=== PATIENT | female | born 1995 | race Caucasian/White ===

== ENCOUNTER 2022-01-30 14:47 | Inpatient (IN) | payer OTHER, SELFPAY ==
[2022-01-30] VITALS (104 sets, daily range): BP systolic 73–129; BP diastolic 18–85; PULSE 75–116; TEMP 36.3; O2SAT 97–100; BMI 29.5
--- NOTE | ~2022-01-30 | XR_ITS ---
EXAM: XR pelvis 1-2V DATE: 01/31/2022 17:01 HISTORY: Repeat image for possible FB . COMPARISON: Same date at 1:50 AM. FINDINGS: Normal mineralization. No fracture or dislocation. No lytic or blastic lesion. Joint space s are maintained. No erosion or periosteal change. Soft tissues within normal limits. A suture needle projects over the inferior left inguinal fold. IMPRESSION: A suture needle projects over the inferior left inguinal fold which may be external to th e patient, such as sitting within the inguinal fold or underneath the patient, possibly dislodged dur ing surgical sponge removal. Results reported telephonically to Nancy Shields by Dr. Scott at 5:16 PM on 01/31/2022. Reviewed, dictated and finalized at location K. IMPRESSION: A suture needle projects over the inferior left inguinal fold which may be external to the patient, such as sitting within the inguinal fold or un derneath the patient, possibly dislodged during surgical sponge removal. Results reported telephonically to Nancy Shields by Dr. Scott at 5:16 PM on 2021.
--- NOTE | ~2022-01-30 | CT_ITS ---
EXAMINATION: CT pelvis wo con DATE: 01/31/2022 19:45 INDICATION: retained suture needle TECHNIQUE: Computed tomography (CT) of the pelvis was performed without intravenous contrast. Automat ed exposure control and iterative reconstruction technique were employed. The dose-length product was 429.31 mGy-cm. COMPARISON: None. FINDINGS: GI tract: No small or large bowel dilation. Normal appendix. Mesentery/Peritoneum: No ascites, mass, or free air. Retroperitoneum: No mass. Pelvis: Expected uterine changes post vaginal delivery. Marked distention of the urinary bladder. Soft Tissues: Suture needle within the posterior/perineal soft tissues, possibly in the gluteal cleft or just within the subcutaneous tissues of the left medial buttock. Bones: No acute osseous finding. IMPRESSION: Suture needle projects either within the gluteal cleft or just within the subcutaneous tissue of the left medial buttock. Reviewed, dictated and finalized at location K. IMPRESSION: Suture needle projects either within the gluteal cleft or just within the subcu taneous tissue of the left medial buttock.
--- NOTE | ~2022-01-30 | XR_ITS ---
EXAM: XR pelvis 1-2V DATE: 01/31/2022 01:56 HISTORY: needle lost in vagina known packing spounge in vagina . COMPARISON: None available. FINDINGS: Surgical sponge material projects over the midline lower pelvis/peritoneum. Suggestion of a slightly curvilinear opacity projecting over the right lateral aspect of the pubic symphysis. Region al bones and soft tissues normal for age. IMPRESSION: Curvilinear opacity projecting over the right lateral aspect of the pubic symphysis, may represent artifact but a surgical needle could appear similar. Recommend repeat pelvic x-ray, with an additional image of an example needle for comparison. Results reported telephonically to Nancy Shields RN by Dr. Scott at 4:05 PM on 01/31/2022. Reviewed, dictated and finalized at location K. IMPRESSION: Curvilinear opacity projecting over the right lateral aspect of the pubic symphysis, may represent artifact but a surgical needle could appear sim ilar. Recommend repeat pelvic x-ray, with an additional image of an example nee dle for comparison. Results reported telephonically to Nancy Shields RN by Dr. Scott at 4:05 PM on .
--- OUTSIDE RECORDS SUMMARY | 2022-01-30 14:52 | XMS_ITS | Encounter Summary ---
:1995 Author Care Team Providers Name Role Phone Lisbet Kelly [facility] Primary Care Provider [phone] Reason for Visit NST Assessment and Plan 1. Reduced movement ? non-stress test Discussion Note: None recorded.Patient educational handouts: No information available. Plan of Care Reminders Provider Appointments None recorded. ? ? Lab None recorded. ? ? Referral None recorded. ? ? Procedures None recorded. ? ? Surgeries None recorded. ? ? Imaging Non-stress Test 01/09/2022 [place] Medications Name Start Date ? ? ? Medications Administered None recorded. Vitals None recorded. Results Lab Results None recorded. Allergies Code Code System Name Reaction Severity Onset NKDA ? ? ? Problems Name Status Onset Date Source ? 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 Procedures Date Name Performed by ? 06/28/2017 Extraction of [place] Tooth Information n ot available 12/10/2021 , Obstetric, [facility] [address] [place] [address] (Work Place) 12/18/2021 , Obstetric, [facility] [address] [place] [address] (Work [address])
--- OUTSIDE RECORDS SUMMARY | 2022-01-30 14:52 | XMS_ITS | Encounter Summary ---
:1995 Author Care Team Providers Name Role Phone Lisbet Kelly [facility] Primary Care Provider [phone] Reason for Visit OB visit OB [id number] EDC 01/26/2022 LMP 04/15/2021 Assessment and Plan Assessment Note Patient is _40__weeks . Discuss ed plan. 1. Routine care Discussion Note: None recorded.Patient educational handouts: No information available. Plan of Care Reminders Provider Appointments None recorded. ? ? Lab None recorded. ? ? Referral None recorded. ? ? Procedures None recorded. ? ? Surgeries None recorded. ? ? Imaging None recorded. ? ? Medications Name Start Date ? ? ? Medications Administered None recorded. Vitals Height Weight BMI Blood Pressure 5 ft 6 in 183 lbs 29.5 kg/m2 117/75 mm[Hg] Results Lab Results None recorded. Allergies Code Code System Name Reaction Severity Onset NKDA ? ? ? Problems Name Status Onset Date Source ? 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 Procedures Date Name Performed by ? 06/28/2017 Extraction of [place] Tooth Information n ot available 01/08/2022 US, Obstetric, Follow-up [place] [address] [place] [address] (Work Place)
--- OUTSIDE RECORDS SUMMARY | 2022-01-30 14:52 | XMS_ITS ---
:1995 Author Care Team Providers Name Role Phone [facility] Primary Care Provider [phone] Allergies Code Code System Name Reaction Severity Status Onset NKDA ? Medications Name Status Start Date Stop Date ? ? AZO Standard Completed ? 02/10/2013 Bactrim DS 800 mg-160 mg tablet Completed 02/25/2013 10/10/2013 take 1 tablet by oral route every 12 hours Estarylla 0.25 mg-35 mcg tablet Completed ? 06/11/2021 TAKE 1 TABLET BY MOUTH EVERY DAY Ortho Tri-Cyclen LO (28) 0.18 mg/0.215 mg/0.25 mg-25 mcg tab let Completed 05/22/2013 05/22/2013 take 1 tablet by oral route every day Active ? Not available valacyclovir 1 gram tablet Completed ? 06/12 Problems Name Status Onset Date Source ? 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 Procedures Date Name Performed by ? 06/28/2017 Extraction of [place] Tooth Information n ot available 06/12/2021 US, Obstetric, Transvaginal [place]
--- OUTSIDE RECORDS SUMMARY | 2022-01-30 14:52 | XMS_ITS | Encounter Summary ---
:1995 Author Care Team Providers Name Role Phone Lisbet Kelly [facility] Primary Care Provider [phone] Reason for Visit OB visit OB [id number] EDC 01/26/2022 LMP 04/15/2021 Assessment and Plan Assessment Note Patient is _37__weeks . Discuss ed plan. 1. Routine care [...] BMI Blood Pressure 5 ft 6 in 179 lbs 28.9 kg/m2 123/65 mm[Hg] Results Lab Results None recorded. Allergies Code Code System Name Reaction Severity Onset NKDA ? ? ? Problems Name Status Onset Date Source ? 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 Procedures Date Name Performed by ? 06/28/2017 Extraction of [place] Tooth Information n ot available 12/10/2021 US, Obstetric, Limited [place] [address] [place] [address] (Work Place)
--- OUTSIDE RECORDS SUMMARY | 2022-01-30 14:52 | XMS_ITS | Encounter Summary ---
:1995 Author Care Team Providers Name Role Phone Lisbet Kelly [facility] Primary Care Provider [phone] Reason for Visit OB visit OB [id number] EDC 01/26/2022 LMP 04/15/2021 Assessment and Plan 1. Routine care Discussion Note: None recorded.Patient [...] BMI Blood Pressure 5 ft 6 in 182 lbs 29.4 kg/m2 118/78 mm[Hg] Results Lab Results None recorded. Allergies Code Code System Name Reaction Severity Onset NKDA ? ? ? Problems Name Status Onset Date Source ? 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 Procedures Date Name Performed by ? 06/28/2017 Extraction of [place] Tooth Information n ot available 01/08/2022 US, Obstetric, Follow-up [place] [address] [place] [address] (Work Place) 01/09/2022 Non-stress Test [place] [address]
--- OUTSIDE RECORDS SUMMARY | 2022-01-30 14:52 | XMS_ITS | Encounter Summary ---
:1995 Author Care Team Providers Name Role Phone Lisbet Kelly [facility] Primary Care Provider [phone] Reason for Visit None recorded. Assessment and Plan 1. Oligohydramnios ? US, obstetric, limited Discussion Note: None recorded.Patient educational handouts: No information available. Plan of Care Reminders Provider Appointments None recorded. ? ? Lab None recorded. ? ? Referral None recorded. ? ? Procedures None recorded. ? ? Surgeries None recorded. ? ? Imaging US, Obstetric, Limited 12/22/2021 [facility] Medications Name Start Date ? ? ? Medications Administered None recorded. Vitals None recorded. Results Lab Results None recorded. Allergies Code Code System Name Reaction Severity Onset NKDA ? ? ? Problems Name Status Onset Date Source ? 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 Procedures Date Name Performed by ? 06/28/2017 Extraction of [place] Tooth Information n ot available 12/02/2021 US, Obstetric, Follow-up [place] [address] [place] [address] (Work Place) 12/10/2021 US, Obstetric, Limited [place] [address] [place] [address]
--- OUTSIDE RECORDS SUMMARY | 2022-01-30 14:52 | XMS_ITS | Encounter Summary ---
:1995 Author Care Team Providers Name Role Phone Lisbet Kelly [facility] Primary Care Provider [phone] Reason for Visit OB visit OB [id number] edc 01/26/2022 lmp 04/15/2021 Assessment and Plan Assessment Note Patient is __33_weeks . Discuss ed plan. 1. Routine care [...] BMI Blood Pressure 5 ft 6 in 164 lbs 26.5 kg/m2 108/68 mm[Hg] Results Lab Results None recorded. Allergies Code Code System Name Reaction Severity Onset NKDA ? ? ? Problems Name Status Onset Date Source ? 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 Procedures Date Name Performed by ? 06/28/2017 Extraction of [place] Tooth Information n ot available 12/02/2021 US, Obstetric, Follow-up [place] [address] [place] [address] (Work [address])
--- OUTSIDE RECORDS SUMMARY | 2022-01-30 14:52 | XMS_ITS | Encounter Summary ---
:1995 Author Care Team Providers Name Role Phone Lisbet Kelly [facility] Primary Care Provider [phone] Reason for Visit None recorded. Assessment and Plan 1. Oligohydramnios ? US, obstetric, biophysical profile + non-stress test Discussion Note: None recorded.Patient educational handouts: No information available. Plan of Care Reminders Provider Appointments None recorded. ? ? Lab None recorded. ? ? Referral None recorded. ? ? Procedures None recorded. ? ? Surgeries None recorded. ? ? Imaging US, Obstetric, Biophysical Profile + [place] Non-stress Test Medications Name Start Date ? ? ? Medications Administered None recorded. Vitals None recorded. Results Lab Results None recorded. Allergies Code Code System Name Reaction Severity Onset NKDA ? ? ? Problems Name Status Onset Date Source ? 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 Procedures Date Name Performed by ? 06/28/2017 Extraction of [place] Tooth Information n ot available 01/08/2022 US, Obstetric, Follow-up [place] [address] [place] [address] (Work [address]) 01/09/2022 Non-stress Test [place] [address]
--- OUTSIDE RECORDS SUMMARY | 2022-01-30 14:52 | XMS_ITS | Encounter Summary ---
:1995 Author Care Team Providers Name Role Phone Lisbet Kelly [facility] Primary Care Provider [phone] Reason for Visit None recorded. Assessment and Plan 1. Uterine size for dates discrepancy ? US, obstetric, follow-up Discussion Note: None recorded.Patient educational handouts: No information available. Plan of Care Reminders Provider Appointments None recorded. ? ? Lab None recorded. ? ? Referral None recorded. ? ? Procedures None recorded. ? ? Surgeries None recorded. ? ? Imaging US, Obstetric, Follow-up 01/08/2022 [facility] Medications Name Start Date ? ? ? Medications Administered None recorded. Vitals None recorded. Results Lab Results None recorded. Allergies Code Code System Name Reaction Severity Onset NKDA ? ? ? Problems Name Status Onset Date Source ? 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 Procedures Date Name Performed by ? 06/28/2017 Extraction of [place] Tooth Information n ot available 12/10/2021 US, Obstetric, [facility] [address] [place] [address] (Work [address]) 12/18/2021 [facility], [facility]st[facility], [facility] [address] [place] [address]
--- OUTSIDE RECORDS SUMMARY | 2022-01-30 14:52 | XMS_ITS | Encounter Summary ---
:1995 Author Care Team Providers Name Role Phone Lisbet Kelly [facility] Primary Care Provider [phone] Reason for Visit OB visit OB [id number] EDC 01/26/2022 LMP 04/15/2021 Assessment and Plan Assessment Note Patient is __35_weeks . Discuss ed plan. 1. Routine care [...] BMI Blood Pressure 5 ft 6 in 171 lbs 27.6 kg/m2 109/71 mm[Hg] Results Lab Results None recorded. Allergies Code Code System Name Reaction Severity Onset NKDA ? ? ? Problems Name Status Onset Date Source ? 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 Procedures Date Name Performed by ? 06/28/2017 Extraction of [place] Tooth Information n ot available 12/02/2021 US, Obstetric, Follow-up [place] [address] [place] [address] (Work [address])
--- OUTSIDE RECORDS SUMMARY | 2022-01-30 14:52 | XMS_ITS | Encounter Summary ---
:1995 Author Care Team Providers Name Role Phone Lisbet Kelly [facility] Primary Care Provider [phone] Reason for Visit None recorded. Assessment and Plan 1. Post-term ? non-stress test Discussion Note: None recorded.Patient educational handouts: No information available. Plan of Care Reminders Provider Appointments None recorded. ? ? Lab None recorded. ? ? Referral None recorded. ? ? Procedures None recorded. ? ? Surgeries None recorded. ? ? Imaging Non-stress Test 01/30/2022 [place] Medications Name Start Date ? ? ? Medications Administered None recorded. Vitals None recorded. Results Lab Results None recorded. Allergies Code Code System Name Reaction Severity Onset NKDA ? ? ? Problems Name Status Onset Date Source ? 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 Procedures Date Name Performed by ? 06/28/2017 Extraction of [place] Tooth Information n ot available 01/08/2022 US, Obstetric, Follow-up [place] [address] [place] [address] (Work [address]) 01/09/2022 Non-stress Test [place] [address] [place] [address] (Work [address]
--- OUTSIDE RECORDS SUMMARY | 2022-01-30 14:52 | XMS_ITS | Encounter Summary ---
:1995 Author Care Team Providers Name Role Phone Lisbet Kelly [facility] Primary Care Provider [phone] Reason for Visit None recorded. Assessment and Plan 1. Oligohydramnios ? US, obstetric, limited Discussion Note: None recorded.Patient educational handouts: No information available. Plan of Care Reminders Provider Appointments None recorded. ? ? Lab None recorded. ? ? Referral None recorded. ? ? Procedures None recorded. ? ? Surgeries None recorded. ? ? Imaging US, Obstetric, Limited 12/18/2021 [facility] Medications Name Start Date ? [...] Name Performed by ? 06/28/2017 Extraction of [place] Tooth Information n ot available 12/02/2021 US, Obstetric, Follow-up [place] [address] [place] [address] (Work [address]) 12/10/2021 US, Obstetric, Limited [place] [address] [place] [address]
--- OUTSIDE RECORDS SUMMARY | 2022-01-30 14:52 | XMS_ITS | Encounter Summary ---
:1995 Author Care Team Providers Name Role Phone Lisbet Kelly [facility] Primary Care Provider [phone] Reason for Visit OB visit ob [id number] EDC 01/26/2022 LMP 04/15/2021 Assessment and Plan Assessment Note Patient is _36__weeks . Discuss ed plan. 1. Routine care [...] BMI Blood Pressure 5 ft 6 in 172 lbs 27.8 kg/m2 108/71 mm[Hg] Results Lab Results None recorded. Allergies Code Code System Name Reaction Severity Onset NKDA ? ? ? Problems Name Status Onset Date Source ? 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 Procedures Date Name Performed by ? 06/28/2017 Extraction of [place] Tooth Information n ot available 12/02/2021 US, Obstetric, Follow-up [place] [address] [place] [address] (Work [address])
--- OUTSIDE RECORDS SUMMARY | 2022-01-30 14:52 | XMS_ITS | Encounter Summary ---
:1995 Author Care Team Providers Name Role Phone Lisbet Kelly [facility] Primary Care Provider [phone] Reason for Visit OB visit OB [id number] EDC 01/26/2022 LMP 04/15/2021 Assessment and Plan Assessment Note Patient is __38_weeks . Discuss ed plan. 1. Routine care [...] BMI Blood Pressure 5 ft 6 in 181 lbs 29.2 kg/m2 106/70 mm[Hg] Results Lab Results None recorded. Allergies Code Code System Name Reaction Severity Onset NKDA ? ? ? Problems Name Status Onset Date Source ? 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 Procedures Date Name Performed by ? 06/28/2017 Extraction of [place] Tooth Information n ot available 12/18/2021 US, Obstetric, Limited [place] [address] [place] [address] (Work [address])
--- OUTSIDE RECORDS SUMMARY | 2022-01-30 14:53 | XMS_ITS | Encounter Summary ---
:1995 Author Care Team Providers Name Role Phone Lisbet Kelly [facility] Primary Care Provider [phone] Reason for Visit OB visit OB [id number] EDC 01/26/2022 LMP 04/15/2021 Assessment and Plan Assessment Note Patient is _28__weeks . Discuss ed plan. 1. Routine care [...] BMI Blood Pressure 5 ft 6 in 154 lbs 24.9 kg/m2 108/72 mm[Hg] Results Lab Results None recorded. Allergies Code Code System Name Reaction Severity Onset NKDA ? ? ? Problems Name Status Onset Date Source ? 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 Procedures Date Name Performed by ? 06/28/2017 Extraction of [place] Tooth Information n ot available Vaccine List None recorded. Social History Tobacco Smoking Status Never Smoker Do you have difficulty walking or climbing stairs? N What type of diet are you following? REGULAR What is the highest g
--- OUTSIDE RECORDS SUMMARY | 2022-01-30 14:53 | XMS_ITS | Encounter Summary ---
:1995 Author Care Team Providers Name Role Phone Lisbet Kelly [facility] Primary Care Provider [phone] Reason for Visit OB visit OB [id number] EDC 01/26/2022 LMP 04/15/2021 Assessment and Plan Assessment Note Patient is __32_weeks . Discuss ed plan. 1. Routine care [...] BMI Blood Pressure 5 ft 6 in 161 lbs 26 kg/m2 115/61 mm[Hg] Results Lab Results None recorded. Allergies Code Code System Name Reaction Severity Onset NKDA ? ? ? Problems Name Status Onset Date Source ? 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 Procedures Date Name Performed by ? 06/28/2017 Extraction of [place] Tooth Information n ot available 12/02/2021 US, Obstetric, Follow-up [place] [address] [place] [address] (Work [address])
--- OUTSIDE RECORDS SUMMARY | 2022-01-30 14:53 | XMS_ITS | Encounter Summary ---
:1995 Author Care Team Providers Name Role Phone Lisbet Kelly [facility] Primary Care Provider [phone] Reason for Visit None recorded. Assessment and Plan 1. Uterine size for dates discrepancy ? US, obstetric, follow-up Discussion Note: None recorded.Patient educational handouts: No information available. Plan of Care Reminders Provider Appointments None recorded. ? ? Lab None recorded. ? ? Referral None recorded. ? ? Procedures None recorded. ? ? Surgeries None recorded. ? ? Imaging US, Obstetric, Follow-up 12/02/2021 [facility] Medications Name Start Date ? [...] Name Performed by ? 06/28/2017 Extraction of [place] Tooth Information n ot available 12/02/2021 US, Obstetric, Follow-up [place] [address] [place] [address] (Work [address]) Vaccine List None recorded. Social History Tobacco Smoking Status Never Smoker Do you have difficulty walking or climbing stairs? N What type of diet are you following? REGULAR
--- OUTSIDE RECORDS SUMMARY | 2022-01-30 14:53 | XMS_ITS | Encounter Summary ---
:1995 Author Care Team Providers Name Role Phone Lisbet Kelly [facility] Primary Care Provider [phone] Reason for Visit None recorded. Assessment and Plan 1. Oligohydramnios ? US, obstetric, limited Discussion Note: None recorded.Patient educational handouts: No information available. Plan of Care Reminders Provider Appointments None recorded. ? ? Lab None recorded. ? ? Referral None recorded. ? ? Procedures None recorded. ? ? Surgeries None recorded. ? ? Imaging US, Obstetric, Limited 12/10/2021 [facility] Medications Name Start Date ? [...] Name Performed by ? 06/28/2017 Extraction of [place] Tooth Information n ot available 12/02/2021 US, Obstetric, Follow-up [place] [address] [place] [address] (Work [address]) 12/10/2021 US, Obstetric, Limited [place] [address] [place] [address]
--- OUTSIDE RECORDS SUMMARY | 2022-01-30 14:53 | XMS_ITS | Encounter Summary ---
:1995 Author Care Team Providers Name Role Phone Lisbet Kelly [facility] Primary Care Provider [phone] Reason for Visit OB visit OB [id number] EDC 01/26/2022 LMP 04/15/2021 Assessment and Plan Assessment Note Patient is _30__weeks . Discuss ed plan. 1. Routine care [...] BMI Blood Pressure 5 ft 6 in 157 lbs 25.3 kg/m2 109/68 mm[Hg] Results Lab Results None recorded. Allergies Code Code System Name Reaction Severity Onset NKDA ? ? ? Problems Name Status Onset Date Source ? 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 Procedures Date Name Performed by ? 06/28/2017 Extraction of [place] Tooth Information n ot available Vaccine List None recorded. Social History Tobacco Smoking Status Never Smoker Do you have difficulty walking or climbing stairs? N What type of diet are you following? REGULAR What is the highest g
--- NOTE | 2022-01-30 15:53 | LDADM ---
This patient, Nuris Trevizo, was admitted to Labor/Delivery/Recovery 104 on 01/30/22 at 14:47. Plans for labor, pain management and were discussed with patient. Patient/family oriented to hospital policies and general routines including ID bracelet, bed and alarms, visiting hours, pain management, procedures, bathroom and other care routines, personal items, smoking policy, room service/diet and guest tray routines, infant security routines, and visiting hours. Patient/Family are encouraged to report perceived risks to care and to ask questions if they do not understand what they are told or what they should do. See OBIX for further documentation.
--- NOTE | 2022-01-30 16:05 | WPDOBADMIT ---
Obstetrics - Admit Note Admission Note: record reviewed. No pertinent additions to the history and/or any subsequent changes in the physical findings that are not consistent with the expected course of the were found. pt admitted for IOL for oligohydramnios, GBS negative, attempted AROM, bloody show, anticipate vaginal delivery Additions to the history and/or subsequent changes in the physical findings follow. None.
[2022-01-30 16:18] LABS: Basophils Absolute Auto 0.1 K/mm3 (0.0-0.1); Basophils Percent Auto 0.4 % (0.2-1.2); Eosinophils Absolute Auto 0.1 K/mm3 (0-0.3); Eosinophils Percent Auto 0.8 % (0-4.4); Hematocrit 36.3 % (37.0-47.0); Hemoglobin 11.5 g/dL (12.0-15.0); Immature Granulocyte Absolute 0.16 K/mm3 (0.00-0.031); Immature Granulocyte Percent A 1.4 % (0-0.5); Lymphocytes Absolute Auto 2.13 K/mm3 (0.9-3.2); Lymphocytes Percent Auto 18.3 % (18.3-44.2); Mean Corpuscular HGB Conc 31.7 g/dl (32-36); Mean Corpuscular Volume 97.8 fl (80-100); Mean Platelet Volume 10.3 fl (7.4-10.4); Monocytes Absolute Auto 1.3 K/mm3 (0.1-0.6); Neutrophils Absolute Auto 7.9 K/mm3 (1.3-6.7); Neutrophils Percent Auto 68.1 % (45.5-73.1); Platelet Count Result 165 k/mm3 (150-375); Red Blood Count 3.71 M/mm3 (4.2-5.4); White Blood Count 11.6 K/mm3 (4.5-10.0)
[2022-01-30] MEDS: LACTATED RINGERS 1,000 ML 125 ML IV CONT ×2 (17:49→18:44)
[2022-01-30 17:55] LABS: SARS-CoV-2 RNA PCR Negative
--- NOTE | 2022-01-30 18:04 | WPDANESEPPF ---
Anes - Initial Pre Proc Eval Procedure: labor epidural Date/Time: 01/30/22 18:04 Surgeon: Clarissa Singh MD Pre Op Diagnosis: labor pain Pre Op Diagnosis: Preadmit Patient Data Age: 26 Gender: F Height: 1.68 m Weight: 83 kg Last Vital Signs Pulse 76 01/30/22 18:00 BP 91/67 L 01/30/22 18:00 O2 Del Method Room Air 01/30/22 15:53 Allergies Allergy/AdvReac Type Severity Reaction Status Date / Time No Known Drug Allergies Allergy Unknown Unknown Verified 12/26/21 14:48 Home Medications Medication Instructions Recorded Confirmed Type ferrous sulfate 142 mg (45 mg 142 mg PO BID 12/26/21 01/30/22 History iron) tablet,extended release prenat.vits,all,lfi-cugr-wvbst 1 tablet PO DAILY 12/26/21 01/30/22 History Laboratory Tests 01/30/22 01/30/22 01/30/22 16:03 16:03 16:03 WBC 11.6 K/mm3 H K/mm3 (4.5-10.0) RBC 3.71 M/mm3 L M/mm3 (4.2-5.4) Hgb 11.5 g/dL L g/dL (12.0-15.0) Hct 36.3 % L % (37.0-47.0) MCV 97.8 fl fl (80-100) MCH 31.0 pg pg (26-34) MCHC 31.7 g/dl L g/dl (32-36) RDW 16.0 % H % (11.5-14.5) Plt Count 165 k/mm3 k/mm3 (150-375) MPV 10.3 fl fl (7.4-10.4) Immature Gran % (Auto) 1.4 % H % (0-0.5) Neut % (Auto) 68.1 % % (45.5-73.1) Lymph % (Auto) 18.3 % % (18.3-44.2) [place] % (Auto) 11.0 % H % (2.6-8.5) Eos % (Auto) 0.8 % % (0-4.4) Baso % (Auto) 0.4 % % (0.2-1.2) Lymph # (Auto) 2.13 K/mm3 K/mm3 (0.9-3.2) [place] # (Auto) 1.3 K/mm3 H K/mm3 (0.1-0.6) Eos # (Auto) 0.1 K/mm3 K/mm3 (0-0.3) Baso # (Auto) 0.1 K/mm3 K/mm3 (0.0-0.1) Abs Immat Gran (auto) 0.16 K/mm3 H K/mm3 (0.00-0.031) Absolute Neuts (auto) 7.9 K/mm3 H K/mm3 (1.3-6.7) Absolute Nucleated RBC 0.0 K/mm3 K/mm3 (0.0-0.012) Nucleated RBC % 0.0 % % (0.0-0.2) RPR Pending SARS-CoV-2 RNA (RT-PCR) Blood Type A Positive Antibody Screen Negative 01/30/22 16:54 WBC RBC Hgb Hct MCV MCH MCHC RDW Plt Count MPV Immature Gran % (Auto) Neut % (Auto) Lymph % (Auto) [place] % (Auto) Eos % (Auto) Baso % (Auto) Lymph # (Auto) [place] # (Auto) Eos # (Auto) Baso # (Auto) Abs Immat Gran (auto) Absolute Neuts (auto) Absolute Nucleated RBC Nucleated RBC % RPR SARS-CoV-2 RNA (RT-PCR) Negative Blood Type Antibody Screen Patient hx anesthesia problems: none Family hx anesthesia problems: none Results Review: All pre-operative results and documents have been reviewed as part of the pre-operative evaluation. [facility] Family History Family History (Updated 12/26/21 @ 14:51 by Marcelina Salazar RN) Mother Diabetes mellitus Grandparent Cancer Grandparent Cancer Grandparent Cancer Social History Social History Smoking status: Never smoker Substance use: never Spiritual care concerns: No Anes - Eval Final PreProcedure Day of Procedure 01/30/22 18:04 Patient weight: overweight ASA classification: III Anesthetic plan: proceed Anesthesia type and monitoring: regional epidural and standard monitoring Results Review: All pre-operative results and documents have been reviewed as part of the pre-operative evaluation. Informed Consent: The patient's anesthetic plan and its attendant risks and benefits were discussed with the patient/family/POA. Questions were solicited and answers provided to the satisfaction of the patient/family/POA.
[2022-01-31] VITALS (30 sets, daily range): BP systolic 103–131; BP diastolic 50–95; PULSE 82–147; RESP 16–18; TEMP 36.2–37.4; O2SAT 83–100
[2022-01-31] MEDS: OXYTOCIN 30 UNITS/NS 500 ML 30 UNITS/500 ML BAG 999 UNITS IV CONT (01:00)
--- NOTE | 2022-01-31 01:44 | PM.OBPRVD ---
OB - Delivery Note Procedure Delivery date: 01/31/22 Procedure: Vaginal delivery Events: Oligohydramnios Induction method: AROM Delivery monitor: External FHT and External Uterine Route of delivery: Episiotomy description: None Laceration Description: Perineal - 2nd Degree Delivery repair: vicryl Specimen: Yes Quantitative Blood Loss (ml): 780 Anesthesia type: Epidural Disposition: Floor Baby Date of : 01/31/22 Time of : 00:54 Weeks of gestation at delivery: 40 gender: Male Weight (pounds): 11 Weight (ounces): 2 presentation: vertex position: Left Occiput Anterior Placenta delivery description: Spontaneous Cord Vessel Description: 3 Vessels and Clamped/Cut score one minute: 8 score five minutes: 8 Narrative: Mom and baby in stable condition. Infant to warmer for additional monitoring.
--- NOTE | 2022-01-31 01:52 | PM.OBPRVD ---
OB - Delivery Note Procedure Delivery date: 01/31/22 Procedure: Vaginal delivery Events: Oligohydramnios Induction method: AROM Delivery monitor: External FHT and External Uterine Route of delivery: Episiotomy description: None Laceration Description: Perineal - 2nd Degree Delivery repair: vicryl Specimen: Yes Quantitative Blood Loss (ml): 780 Anesthesia type: Epidural Disposition: Floor Baby Date of : 01/31/22 Time of : 00:54 Weeks of gestation at delivery: 40 gender: Male Weight (pounds): 11 Weight (ounces): 2 presentation: vertex position: Left Occiput Anterior Placenta delivery description: Spontaneous Cord Vessel Description: 3 Vessels and Clamped/Cut score one minute: 8 score five minutes: 8 Narrative: Anterior shoulder slowly delivering. Small amount of suprapubic pressure and was able to reach anterior arm and deliver. Baby delivered without complications. While repairing, suture broke in half. Unable to find during count. Xray done at bedside and appears normal. Awaiting final reading.
[2022-01-31] MEDS: MULTIVIT/MIN/PREN/FOL AC/IRON TABLET 1 TAB PO (06:37)
[2022-01-31] MEDS: IBUPROFEN 600 MG TABLET PO ×2 (06:37→16:47)
[2022-01-31] MEDS: POLYSACCHARIDE IRON COMPLEX 150 MG CAPSULE PO ×2 (06:37→16:47)
[2022-01-31] MEDS: DOCUSATE SODIUM 100 MG CAPSULE PO ×2 (06:37→16:47)
--- NOTE | 2022-01-31 08:44 | PM.OBPNVD ---
OB - PN: Subj Subjective Date/time seen: 01/31/22 08:44 s/p vaginal delivery day 1 OB - PN: Obj Data Labs CBC & Chem 7: 01/30/22 16:03 Labs: Laboratory Results - last 24 hr 01/30/22 01/30/22 01/30/22 16:03 16:03 16:54 WBC 11.6 H RBC 3.71 L Hgb 11.5 L Hct 36.3 L MCV 97.8 MCH 31.0 MCHC 31.7 L RDW 16.0 H Plt Count 165 MPV 10.3 Immature Gran % (Auto) 1.4 H Neut % (Auto) 68.1 Lymph % (Auto) 18.3 [place] % (Auto) 11.0 H Eos % (Auto) 0.8 Baso % (Auto) 0.4 Lymph # (Auto) 2.13 [place] # (Auto) 1.3 H Eos # (Auto) 0.1 Baso # (Auto) 0.1 Abs Immat Gran (auto) 0.16 H Absolute Neuts (auto) 7.9 H Absolute Nucleated RBC 0.0 Nucleated RBC % 0.0 SARS-CoV-2 RNA (RT-PCR) Negative Blood Type A Positive Antibody Screen Negative OB - PN A/P Plan day: 1 Plan: routine care Time Spent With Patient Time: Total time spent is greater than 50% in coordination of care (as documented) at patient's floor/unit and/or counseling patient: Review of Systems Review of Systems: All systems reviewed & are unremarkable except as noted in HPI and below Exam Const: General: cooperative, healthy appearing and comfortable
[2022-01-31 10:45] LABS: Basophils Absolute Auto 0.1 K/mm3 (0.0-0.1); Basophils Percent Auto 0.3 % (0.2-1.2); Eosinophils Percent Auto 0.2 % (0-4.4); Hematocrit 28.4 % (37.0-47.0); Hemoglobin 9.1 g/dL (12.0-15.0); Immature Granulocyte Absolute 0.14 K/mm3 (0.00-0.031); Immature Granulocyte Percent A 0.7 % (0-0.5); Lymphocytes Absolute Auto 2.31 K/mm3 (0.9-3.2); Lymphocytes Percent Auto 12.2 % (18.3-44.2); Mean Corpuscular Hemoglobin 31.2 pg (26-34); Mean Corpuscular Volume 97.3 fl (80-100); Mean Platelet Volume 9.8 fl (7.4-10.4); Monocytes Absolute Auto 1.7 K/mm3 (0.1-0.6); Monocytes Percent Auto 9.1 % (2.6-8.5); Neutrophils Absolute Auto 14.6 K/mm3 (1.3-6.7); Neutrophils Percent Auto 77.5 % (45.5-73.1); Platelet Count Result 142 k/mm3 (150-375); Red Blood Count 2.92 M/mm3 (4.2-5.4); Red Cell Distribution Width 16.1 % (11.5-14.5); White Blood Count 18.9 K/mm3 (4.5-10.0)
[2022-01-31] MEDS: HYDROcodone/acetaminophen (*CRX) 10-325 MG TABLET 1 TAB (19:19)
[2022-02-01] VITALS (10 sets, daily range): BP systolic 103–113; BP diastolic 53–71; PULSE 69–99; RESP 8–18; TEMP 36.6–36.8; O2SAT 97–100
[2022-02-01] MEDS: HYDROcodone/acetaminophen (*CRX) 5-325 MG TABLET 1 TAB PO ×4 (03:52→23:39)
[2022-02-01] MEDS: IBUPROFEN 600 MG TABLET PO ×3 (03:52→23:38)
[2022-02-01 04:21] LABS: Basophils Absolute Auto 0.1 K/mm3 (0.0-0.1); Basophils Percent Auto 0.4 % (0.2-1.2); Eosinophils Absolute Auto 0.1 K/mm3 (0-0.3); Eosinophils Percent Auto 0.8 % (0-4.4); Hematocrit 27.9 % (37.0-47.0); Hemoglobin 8.9 g/dL (12.0-15.0); Immature Granulocyte Absolute 0.23 K/mm3 (0.00-0.031); Immature Granulocyte Percent A 1.3 % (0-0.5); Lymphocytes Absolute Auto 2.98 K/mm3 (0.9-3.2); Lymphocytes Percent Auto 16.9 % (18.3-44.2); Mean Corpuscular HGB Conc 31.9 g/dl (32-36); Mean Corpuscular Hemoglobin 31.2 pg (26-34); Mean Corpuscular Volume 97.9 fl (80-100); Mean Platelet Volume 10.4 fl (7.4-10.4); Monocytes Absolute Auto 1.9 K/mm3 (0.1-0.6); Neutrophils Absolute Auto 12.2 K/mm3 (1.3-6.7); Neutrophils Percent Auto 69.6 % (45.5-73.1); Platelet Count Result 151 k/mm3 (150-375); Red Blood Count 2.85 M/mm3 (4.2-5.4); Red Cell Distribution Width 16.2 % (11.5-14.5); White Blood Count 17.6 K/mm3 (4.5-10.0)
--- NOTE | 2022-02-01 08:13 | PM.IMHP ---
H&P: HPI History of Present Illness Date/Time: 02/01/22 08:13 Chief Complaint: Lost suture needle Narrative: This patient is a 26-year-old female who delivered a 11 lb baby yesterday. There was a break in the skin of the perineum and in the vagina that was a second-degree laceration. Has no complaints. She denies any heavy vaginal bleeding. She denies any nausea, vomiting, fever, chills. She denies any chest pain or shortness of breath. Review of Systems Review of Systems: All systems reviewed & are unremarkable except as noted in HPI and below Constitutional: Constitutional: Denies chills, Denies fatigue, Denies fever(s) and Denies weakness Eyes: Eyes: Denies blurry vision, Denies change in vision, Denies loss of peripheral vision, Denies loss of vision, Denies other visual disturbances and Denies eye pain ENT: Denies vertigo, Denies dizziness, Denies hearing loss, Denies mouth pain, Denies nasal obstruction, Denies neck mass and Denies neck pain Cardiovascular: Cardiovascular: Denies chest pain, Denies diaphoresis, Denies syncope, Denies leg edema and Denies dyspnea Respiratory: Respiratory: Denies chest congestion, Denies cough, Denies hemoptysis, Denies dyspnea and Denies wheezing Gastrointestinal: Gastrointestinal: Denies abdominal pain, Denies constipation, Denies diarrhea, Denies nausea and Denies vomiting Genitourinary: Genitourinary: Denies hematuria, Denies change in libido, Denies nocturia, Denies genital lesions, Denies flank pain and Denies urinary urgency Musculoskeletal: Musculoskeletal: Denies abnormal gait, Denies back pain, Denies myalgias, Denies arthralgias, Denies joint swelling, Denies muscle weakness and Denies neck pain Integumentary/Breasts: Skin/Breast: Denies swelling, Denies breast pain, Denies breast mass, Denies dry skin, Denies nipple discharge, Denies unusual bruising and Denies jaundice Neurologic: Denies Neuro-related abnormal movements, Denies Abnormal speech present, Denies abnormal gait, Denies behavioral changes, Denies confusion, Denies vertigo, Denies dizziness, Denies syncope, Denies loss of vision, Denies memory loss, Denies convulsions and Denies weakness Psychiatric: Psychiatric: Denies abnormal sleep pattern, Denies behavioral changes, Denies change in libido, Denies confusion, Denies depression, Denies anhedonia and Denies memory loss Endocrine: Endocrine: Reports no additional endocrine complaints, Denies change in libido and Denies fatigue Hematologic/Lymphatic: Hematologic/Lymphatic: Reports no additional hematologic/lymphatic complaints Allergic/Immunologic: Allergic/Immunologic: Reports no additional allergic/immunologic complaints and Denies wheezing [facility] Family History Family History (Updated 12/26/21 @ 14:51 by Marcelina Salazar RN) Mother Diabetes mellitus Grandparent Cancer Grandparent Cancer Grandparent Cancer Social History Social History Smoking status: Never smoker Substance use: never Spiritual care concerns: No Meds Home Medications and Allergies Home Medications Medication Instructions Recorded Confirmed Type ferrous sulfate 142 mg (45 mg 142 mg PO BID 12/26/21 01/30/22 History iron) tablet,extended release prenat.vits,all,geo-biay-ythgh 1 tablet PO DAILY 12/26/21 01/30/22 History Allergies Allergy/AdvReac Type Severity Reaction Status Date / Time No Known Drug Allergies Allergy Unknown Unknown Verified 12/26/21 14:48 Vital Signs Vital Signs - 24 hr 01/31/22 11:35 01/31/22 16:15 01/31/22 19:20 Temperature 97.1 F L 97.1 F L 98.4 F Pulse Rate 89 100 94 Respiratory Rate 18 18 16 Blood Pressure 105/66 109/69 114/66 Pulse Oximetry 99 100 100 Exam Const: General: cooperative, healthy appearing, comfortable and no acute distress; No confusion Orientation/consciousness: oriented to person, oriented to place, oriented to time and No confusion HENMT: Head: normal to inspection Ears: external ears normal Genera
--- NOTE | 2022-02-01 08:25 | WPDHPUPDATE1 ---
History and Physical Update Update Date/Time: 02/01/22 08:25 History and Physical has been reviewed, including an updated exam of the patient. There are NO changes in the patient's condition. Risks, benefits, and alternatives have been discussed and questions answered. Patient agrees to proceed with procedure.
--- NOTE | 2022-02-01 08:26 | WPDANESEPPF ---
Anes - Initial Pre Proc Eval Procedure: Operation Date: 02/01/22 09:00 Proposed Procedures p D&C Suction and Sharp - Clarissa Singh MD Date/Time: 02/01/22 08:26 Surgeon: Clarissa Singh MD Pre Op Diagnosis: Preadmit Patient Data Age: 26 Gender: F Height: 1.68 m Weight: 83 kg Last Vital Signs Temp 36.9 C 01/31/22 19:20 Pulse 94 01/31/22 19:20 Resp 16 01/31/22 19:20 BP 114/66 01/31/22 19:20 Pulse Ox 100 01/31/22 19:20 O2 Del Method Room Air 01/31/22 07:03 Allergies Allergy/AdvReac Type Severity Reaction Status Date / Time No Known Drug Allergies Allergy Unknown Unknown Verified 12/26/21 14:48 Home Medications Medication Instructions Recorded Confirmed Type ferrous sulfate 142 mg (45 mg 142 mg PO BID 12/26/21 01/30/22 History iron) tablet,extended release prenat.vits,all,amh-lgfj-naucc 1 tablet PO DAILY 12/26/21 01/30/22 History Laboratory Tests 01/31/22 02/01/22 10:37 03:47 WBC 18.9 K/mm3 H K/mm3 17.6 K/mm3 H K/mm3 (4.5-10.0) (4.5-10.0) RBC 2.92 M/mm3 L M/mm3 2.85 M/mm3 L M/mm3 (4.2-5.4) (4.2-5.4) Hgb 9.1 g/dL L g/dL 8.9 g/dL L g/dL (12.0-15.0) (12.0-15.0) Hct 28.4 % L % 27.9 % L % (37.0-47.0) (37.0-47.0) MCV 97.3 fl fl 97.9 fl fl (80-100) (80-100) MCH 31.2 pg pg 31.2 pg pg (26-34) (26-34) MCHC 32.0 g/dl g/dl 31.9 g/dl L g/dl (32-36) (32-36) RDW 16.1 % H % 16.2 % H % (11.5-14.5) (11.5-14.5) Plt Count 142 k/mm3 L k/mm3 151 k/mm3 k/mm3 (150-375) (150-375) MPV 9.8 fl fl 10.4 fl fl (7.4-10.4) (7.4-10.4) Immature Gran % (Auto) 0.7 % H % 1.3 % H % (0-0.5) (0-0.5) Neut % (Auto) 77.5 % H % 69.6 % % (45.5-73.1) (45.5-73.1) Lymph % (Auto) 12.2 % L % 16.9 % L % (18.3-44.2) (18.3-44.2) [place] % (Auto) 9.1 % H % 11.0 % H % (2.6-8.5) (2.6-8.5) Eos % (Auto) 0.2 % % 0.8 % % (0-4.4) (0-4.4) Baso % (Auto) 0.3 % % 0.4 % % (0.2-1.2) (0.2-1.2) Lymph # (Auto) 2.31 K/mm3 K/mm3 2.98 K/mm3 K/mm3 (0.9-3.2) (0.9-3.2) [place] # (Auto) 1.7 K/mm3 H K/mm3 1.9 K/mm3 H K/mm3 (0.1-0.6) (0.1-0.6) Eos # (Auto) 0.0 K/mm3 K/mm3 0.1 K/mm3 K/mm3 (0-0.3) (0-0.3) Baso # (Auto) 0.1 K/mm3 K/mm3 0.1 K/mm3 K/mm3 (0.0-0.1) (0.0-0.1) Abs Immat Gran (auto) 0.14 K/mm3 H K/mm3 0.23 K/mm3 H K/mm3 (0.00-0.031) (0.00-0.031) Absolute Neuts (auto) 14.6 K/mm3 H K/mm3 12.2 K/mm3 H K/mm3 (1.3-6.7) (1.3-6.7) Absolute Nucleated RBC 0.0 K/mm3 K/mm3 0.0 K/mm3 K/mm3 (0.0-0.012) (0.0-0.012) Nucleated RBC % 0.0 % % 0.0 % % (0.0-0.2) (0.0-0.2) Patient hx anesthesia problems: none Family hx anesthesia problems: none Results Review: All pre-operative results and documents have been reviewed as part of the pre-operative evaluation. [facility] Past Medical History Medical History (Updated 02/01/22 @ 08:26 by Collins Castro MD) Foreign body (FB) in soft tissue Iron deficiency anemia, unspecified Family History Family History (Updated 12/26/21 @ 14:51 by Marcelina Salazar RN) Mother Diabetes mellitus Grandparent Cancer Grandparent Cancer Grandparent Cancer Social History Social History Smoking status: Never smoker Substance use: never Spiritual care concerns: No Anes - Eval Final PreProcedure Day of Procedure 02/01/22 08:26 Patient weight: overweight Heart: regular rate and rhythm Lungs: clear to auscultation and normal air movement Airway: Mallampati scale class II Neurological: alert and oriented Last oral intake: >/= 8 hours ASA classification: II Emergent: no Anesthetic plan: proceed Anesthesia type and monitoring: general GIVS and standard monitoring Results Review: All pre-operative results and documents have been reviewed as part of the pre-operative evaluation. Informed Consent: The patient's anesthetic plan and its attendant risks and benefits were discussed with the patient/family/POA
[2022-02-01] MEDS: LIDOCAINE HCL 1% LOCAL INJ 20 ML VIAL 10 ML INFILTRATE (09:46)
[2022-02-01] MEDS: LACTATED RINGERS 1,000 ML 30 ML IV CONT (10:09)
--- OUTSIDE RECORDS SUMMARY | 2022-02-01 10:16 | XMS_ITS | Encounter Summary ---
:1995 Author Care Team Providers Name Role Phone Lisbet Kelly [facility] Primary Care Provider [phone] Reason for Visit OB visit OB [id number] EDC 01/26/2022 LMP 04/15/2021 Assessment and Plan [...] Name Performed by ? 06/28/2017 Extraction of [place] [facility] Information n ot available 12/10/2021 US, Obstetric, Limited [place] [address] [place] [address] (Work Place)
--- OUTSIDE RECORDS SUMMARY | 2022-02-01 10:16 | XMS_ITS | Encounter Summary ---
:1995 Author Care Team Providers Name Role Phone Lisbet Kelly [facility] Primary Care Provider [phone] Reason for Visit None recorded. Assessment and Plan 1. Oligohydramnios ? US, obstetric, biophysical profile + non-stress test Discussion Note: None recorded.Patient educational handouts: No information available. Plan of Care Reminders Provider Appointments None recorded. ? ? Lab None recorded. ? ? Referral None recorded. ? ? Procedures None recorded. ? ? Surgeries None recorded. ? ? Imaging US, Obstetric, Biophysical Profile + [place] Non-stress Test Medications Name Start Date ? [...] Name Performed by ? 06/28/2017 Extraction of [place] To[facility] Information n ot available 01/08/2022 US, Obstetric, Follow-up [place] [address] [place] [address] (Work Place) 01/09/2022 Non-stress Test [place] [address]
--- OUTSIDE RECORDS SUMMARY | 2022-02-01 10:16 | XMS_ITS | Encounter Summary ---
:1995 Author Care Team Providers Name Role Phone Lisbet Kelly [facility] Primary Care Provider [phone] Reason for Visit None recorded. Assessment and Plan 1. Post-term ? non-stress test Discussion Note: None recorded.Patient educational handouts: No information available. Plan of Care Reminders Provider Appointments None recorded. ? ? Lab None recorded. ? ? Referral None recorded. ? ? Procedures None recorded. ? ? Surgeries None recorded. ? ? Imaging Non-stress Test 01/30/2022 [place] Medications Name Start Date ? ? ? Medications Administered None recorded. Vitals None recorded. Results Lab Results None recorded. Allergies Code Code System Name Reaction Severity Onset NKDA ? ? ? Problems Name Status Onset Date Source ? 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 Procedures Date Name Performed by ? 06/28/2017 Extraction of [place] Tooth Information n ot available 01/08/2022 US, Obstetric, Follow-up [place] [address] [place] [address] (Work Place) 01/09/2022 Non-stress Test [place] [address] [place] [address] (Work [address]
--- OUTSIDE RECORDS SUMMARY | 2022-02-01 10:16 | XMS_ITS | Encounter Summary ---
:1995 Author Care Team Providers Name Role Phone Lisbet Kelly [facility] Primary Care Provider [phone] Reason for Visit None recorded. Assessment and [...] Name Performed by ? 06/28/2017 Extraction of [place] Tooth Information n ot available 12/10/2021 US, Obstetric, Shandra Mccall [address] [place] [address] (Work Place) 12/18/2021 US, Obstetric, [facility] [address] [place] [address]
--- OUTSIDE RECORDS SUMMARY | 2022-02-01 10:16 | XMS_ITS | Encounter Summary ---
:1995 Author Care Team Providers Name Role Phone Lisbet Kelly [facility] Primary Care Provider [phone] Reason for Visit OB visit OB [id number] edc 01/26/2022 lmp 04/15/2021 Assessment and Plan [...] Name Performed by ? 06/28/2017 Extraction of [place] Tooth Information n ot available 12/02/2021 US, Obstetric, Follow-up [place] [address] [place] [address] (Work Place)
--- OUTSIDE RECORDS SUMMARY | 2022-02-01 10:16 | XMS_ITS ---
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 Procedures Date Name Performed by ? 06/28/2017 Extraction of [place] Tooth Information n ot available 06/12/2021 US, Obstetric, Transvaginal [place]
--- OUTSIDE RECORDS SUMMARY | 2022-02-01 10:16 | XMS_ITS | Encounter Summary ---
:1995 Author Care Team Providers Name Role Phone Lisbet Kelly [facility] Primary Care Provider [phone] Reason for Visit OB visit OB [id number] EDC 01/26/2022 LMP 04/15/2021 Assessment and Plan [...] Name Performed by ? 06/28/2017 Extraction of [place] Tooth Information n ot available 12/18/2021 US, Obstetric, Limited [place] [address] [place] [address] (Work Place)
--- OUTSIDE RECORDS SUMMARY | 2022-02-01 10:16 | XMS_ITS | Encounter Summary ---
:1995 Author Care Team Providers Name Role Phone Lisbet Kelly [facility] Primary Care Provider [phone] Reason for Visit OB visit OB [id number] EDC 01/26/2022 LMP 04/15/2021 Assessment and Plan [...] Name Performed by ? 06/28/2017 Extraction of [place] Tooth Information n ot available 01/08/2022 US, Obstetric, Follow-up [place] [address] [place] [address] (Work [address]) 01/09/2022 Non-stress Test [place] [address]
--- OUTSIDE RECORDS SUMMARY | 2022-02-01 10:16 | XMS_ITS | Encounter Summary ---
:1995 Author Care Team Providers Name Role Phone Lisbet Kelly [facility] Primary Care Provider [phone] Reason for Visit OB visit OB [id number] EDC 01/26/2022 LMP 04/15/2021 Assessment and Plan [...] Name Performed by ? 06/28/2017 Extraction of [place] To[facility] Information n ot available Vaccine List None recorded. Social History Tobacco Smoking Status Never Smoker Do you have difficulty walking or climbing stairs? N What type of diet are you following? REGULAR What is the highest g
--- OUTSIDE RECORDS SUMMARY | 2022-02-01 10:16 | XMS_ITS | Encounter Summary ---
:1995 Author Care Team Providers Name Role Phone Lisbet Kelly [facility] Primary Care Provider [phone] Reason for Visit None recorded. Assessment and [...] Name Performed by ? 06/28/2017 [facility] [place] [facility] Information n ot available 12/02/2021 [place], Obstetric, Follow-up [place] [address] [place] [address] (Work Place) 12/10/2021 US, Obstetric, Limited [facility] [place] [address] [place] [address]
--- OUTSIDE RECORDS SUMMARY | 2022-02-01 10:16 | XMS_ITS | Encounter Summary ---
:1995 Author Care Team Providers Name Role Phone Lisbet Kelly [facility] Primary Care Provider [phone] Reason for Visit OB visit ob [id number] EDC 01/26/2022 LMP 04/15/2021 Assessment and Plan [...] Name Performed by ? 06/28/2017 Extraction [facility] [place] [facility] Information n ot available 12/02/2021 US, Obstetric, Follow-up [place] [address] [place] [address] (Work Place)
--- OUTSIDE RECORDS SUMMARY | 2022-02-01 10:16 | XMS_ITS | Encounter Summary ---
:1995 Author Care Team Providers Name Role Phone Lisbet Kelly [facility] Primary Care Provider [phone] Reason for Visit OB visit OB [id number] EDC 01/26/2022 LMP 04/15/2021 Assessment and Plan [...] Name Performed by ? 06/28/2017 Extraction [facility] [place] [facility] Information n ot available 01/08/2022 US, Obstetric, Follow-up [place] [address] [place] [place] [address] (Work Place)
--- OUTSIDE RECORDS SUMMARY | 2022-02-01 10:16 | XMS_ITS | Encounter Summary ---
:1995 Author Care Team Providers Name Role Phone Lisbet Kelly [facility] Primary Care Provider [phone] Reason for Visit NST Assessment and Plan 1. Reduced movement ? non-stress test Discussion Note: None recorded.Patient educational handouts: No information available. Plan of Care Reminders Provider Appointments None recorded. ? ? Lab None recorded. ? ? Referral None recorded. ? ? Procedures None recorded. ? ? Surgeries None recorded. ? ? Imaging Non-stress Test 01/09/2022 [place] Medications Name Start Date ? ? ? Medications Administered None recorded. Vitals None recorded. Results Lab Results None recorded. Allergies Code Code System Name Reaction Severity Onset NKDA ? ? ? Problems Name Status Onset Date Source ? 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 Procedures Date Name Performed by ? 06/28/2017 Extraction of [place] [facility] Information n ot available 12/10/2021 , Obstetric, [facility] [address] [place] [address] (Work Place) 12/18/2021 , Obstetric, [facility] [address] [place] [address] (Work Place)
--- OUTSIDE RECORDS SUMMARY | 2022-02-01 10:16 | XMS_ITS | Encounter Summary ---
:1995 Author Care Team Providers Name Role Phone Lisbet Kelly [facility] Primary Care Provider [phone] Reason for Visit None recorded. Assessment and [...] Name Performed by ? 06/28/2017 Extraction of [place] [facility] Information n ot available 12/02/2021 US, Obstetric, Follow-up [place] [address] [place] [address] (Work Place) 12/10/2021 US, Obstetric, Limited [place] [address] [place] [address]
--- OUTSIDE RECORDS SUMMARY | 2022-02-01 10:16 | XMS_ITS | Encounter Summary ---
:1995 Author Care Team Providers Name Role Phone Lisbet Kelly [facility] Primary Care Provider [phone] Reason for Visit None recorded. Assessment and [...] Name Performed by ? 06/28/2017 Extraction of [place] [facility] Information n ot available 12/02/2021 US, Obstetric, Follow-up [place] [address] [place] [address] (Work Place) Vaccine List None recorded. Social History Tobacco Smoking Status Never Smoker Do you have difficulty walking or climbing stairs? N What type of diet are you following? REGULAR
--- OUTSIDE RECORDS SUMMARY | 2022-02-01 10:16 | XMS_ITS | Encounter Summary ---
:1995 Author Care Team Providers Name Role Phone Lisbet Kelly [facility] Primary Care Provider [phone] Reason for Visit OB visit OB [id number] EDC 01/26/2022 LMP 04/15/2021 Assessment and Plan [...] Name Performed by ? 06/28/2017 Extraction of [place] [facility] Information n ot available 12/02/2021 US, Obstetric, Follow-up [place] [address] [place] [address] (Work Place)
--- OUTSIDE RECORDS SUMMARY | 2022-02-01 10:16 | XMS_ITS | Encounter Summary ---
:1995 Author Care Team Providers Name Role Phone Lisbet Kelly [facility] Primary Care Provider [phone] Reason for Visit OB visit OB [id number] EDC 01/26/2022 LMP 04/15/2021 Assessment and Plan [...] Name Performed by ? 06/28/2017 Extraction [facility] [place] [facility] Information n ot available Vaccine List None recorded. Social History Tobacco Smoking Status Never Smoker Do you have difficulty walking or climbing stairs? N What type of diet are you following? REGULAR What is the highest g
--- OUTSIDE RECORDS SUMMARY | 2022-02-01 10:16 | XMS_ITS | Encounter Summary ---
:1995 Author Care Team Providers Name Role Phone Lisbet Kelly [facility] Primary Care Provider [phone] Reason for Visit None recorded. Assessment and [...] Name Performed by ? 06/28/2017 Extraction of [place] [facility] Information n ot available 12/02/2021 US, Obstetric, Follow-up [place] [address] [place] [address] (Work Place) 12/10/2021 US, Obstetric, Limited [place] [address] [place] [address]
--- OUTSIDE RECORDS SUMMARY | 2022-02-01 10:16 | XMS_ITS | Encounter Summary ---
:1995 Author Care Team Providers Name Role Phone Lisbet Kelly [facility] Primary Care Provider [phone] Reason for Visit OB visit OB [id number] EDC 01/26/2022 LMP 04/15/2021 Assessment and Plan [...] Name Performed by ? 06/28/2017 Extraction [facility] [place] [facility] Information n ot available 12/02/2021 US, Obstetric, Follow-up [place] [address] [place] [address] (Work Place)
--- NOTE | 2022-02-01 10:20 | W.PM.PROC2 ---
Procedure Note - Detailed Date of Procedure 02/01/22 Pre-op Diagnosis Soft tissue foreign body Post-op Diagnosis Same Procedure Performed Resection of and removal of soft tissue foreign body of the rectovaginal septum Surgeon Clarissa Singh MD Anesthesia MAC Indications Lost soft tissue foreign body, suture/surgical needle. Findings 3/[address]2 needle found in the soft tissue of the rectovaginal septum. Adjacent to rectal mucosa distally. Description of Procedure The patient was taken the operating room. She was prepped and draped in the dorsal lithotomy position after induction of MAC anesthesia. The vaginal laceration repair was taken down. All the sutures were transected and removed. The laceration was very much like a third-degree vaginal laceration of the perineum. With palpation and very minimal sharp dissection the needle was located in adjacent to the rectal mucosa distally near the anal sphincter. Distally could be pushed to the surface and exposed. It was grabbed with a hemostat. Was removed intact. The laceration was then closed very much like a third-degree laceration. The edges were freshened with some debridement in very small tissue transection with scissors. The vaginal close was closed with a 2-0 Vicryl running fashion. The perineal body was closed in 4 interrupted sutures. Sutures were placed in the anal sphincter. It was brought together with 2 2-0 sutures that were through and through the the muscle belly and the surrounding fascia. The skin was closed with subcuticular sutures of 2-0 Vicryl. Patient tolerated procedure well. She was injected with lidocaine at various times during the procedure. She was taken recovery in stable condition sponge lap and needle counts were correct x2. Estimated Blood Loss -20.0 Drains No Packing No Pathology None sent Complications No immediate complications Condition Stable Disposition Floor
[2022-02-01] MEDS: fentaNYL CITRATE INJ (*CRX) 100 MCG/2 ML VIAL 25 MCG IV PUSH ×4 (10:30→10:42)
--- NOTE | 2022-02-01 10:42 | WPDANLDPN2 ---
Anes-Prog Note L&D Date/Time: 02/01/22 10:42 Neuro status: Neuro function grossly intact. Vital Signs: Last Vital Signs Temp 36.8 C 02/01/22 10:09 Pulse 75 02/01/22 10:30 Resp 12 02/01/22 10:30 BP 111/69 02/01/22 10:30 Pulse Ox 97 02/01/22 10:30 O2 Del Method Room Air 02/01/22 10:30 Pain score (VAS): 2 Patient feedback: Patient satisfied with anesthetic care.
--- NOTE | 2022-02-01 11:46 | PC.NURSE ---
This patient, Nuris Trevizo, was transferred to PACU on 02/01/22 at 0815. Personal belongings sent with patient. Report given to Jung. Appropriate documentation sent with patient.
--- NOTE | 2022-02-01 11:47 | PC.NURSE ---
This patient, Nuris Trevizo, was received from PACU on 02/01/22 at 1123. Patient/family oriented to unit policies and routines
[2022-02-02 07:30] VITALS: BP 105/63; PULSE 78; RESP 16; TEMP 36.3; O2SAT 100
--- NOTE | 2022-02-02 08:01 | PM.OBPNVD ---
OB - PN: Subj Subjective Date/time seen: 02/02/22 08:01 Patient comments: no complaints, pain well controlled and tolerating diet OB - PN: Obj Data Labs CBC & Chem 7: 02/01/22 03:47 OB - PN A/P Assessment and Plan (1) Foreign body in soft tissue: Code(s): M79.5 - Residual foreign body in soft tissue Status: Acute Assessment and Plan: patient had a broken needle in the soft tissue in the rectovaginal septum. suture needle was was dissected out, vaginal laceration had to be reopened and closed. She is recovering normally. She has some pain that she would like to have pain medication for a she is discharged today. Plan day: 3 Plan: routine care and discharge home Time Spent With Patient Time: Total time spent is greater than 50% in coordination of care (as documented) at patient's floor/unit and/or counseling patient: Exam Const: General: comfortable and no acute distress Resp: Effort & Inspection: normal respiratory effort Auscultation: no rales, no rhonchi and no wheezes Cardio: Rate: regular rate Heart sounds: no click, no murmurs and no rubs GI: GI Palp: Yes Soft to palpation and No Tenderness to palpation present (GI) Auscultation: normal bowel sounds Extrem: General: normal to inspection, no pedal edema and no calf tenderness
--- NOTE | 2022-02-02 08:06 | PM.OBDSVD ---
DS: Admitting Diagnosis Discharge Date 02/02/22 Admitting Diagnosis Term OB - DS: Summary OB Procedures : None OB Procedures Intrapartum: Spontaneous Vag Delivery OB Procedures: : Other ( removal of broken needle in the operating room , dissection of foreign body from the soft tissue.) Peripartum Data Procedures: Procedures Operation Date: 02/01/22 09:00 Actual Procedure Side Surgeon p removal of foreign object from vaginal soft tissue and repair of vaginal laceration Not Applicable Clarissa Singh MD Time Spent with Patient Time attestation: Total time spent providing and/or coordinating discharge services: DS: Data Data Completed and Pending Pending studies at discharge: Pending at discharge 01/31/22 01:00 Surgical [PTH] Routine Discharge Plan Discharge Discharging Clinician: Clarissa Singh Patient Disposition: Home, Self-Care Activity: pelvic rest Diet: regular Patient Instructions: Antibiotic Form Stand Alone Forms: General Discharge Information Follow-up/Referrals: Clarissa Singh MD [Physician] - Discharge Medications: New hydrocodone-acetaminophen 5-325 mg tablet 1 tablet PO Q4H PRN (Reason: pain) Qty: 14 0RF Continued #2 Tablet 1 tablet PO DAILY ferrous sulfate 142 mg (45 mg iron) Tablet Extended Release 142 mg PO BID Date of admission: 01/30/22 14:47 Primary Care Provider: Tamera Andersen Admitting Provider: Clarissa Singh Attending physician on admission: Clarissa Singh Condition: Stable
[2022-02-02] MEDS: LORATADINE 10 MG TABLET PO (08:14)
[2022-02-02] MEDS: MULTIVIT/MIN/PREN/FOL AC/IRON TABLET 1 TAB PO (08:14)
[2022-02-02] MEDS: FERROUS SULFATE DRIED 142 MG TABCR PO (08:14)
[2022-02-02] MEDS: DOCUSATE SODIUM 100 MG CAPSULE PO (08:15)
[2022-02-02] MEDS: IBUPROFEN 600 MG TABLET PO (08:15)
[2022-02-02] MEDS: HYDROcodone/acetaminophen (*CRX) 5-325 MG TABLET 1 TAB PO ×2 (08:16→12:42)
--- NOTE | 2022-02-02 11:33 | PC.NURSE ---
Patient viewed the discharge video Mother & Baby Care, The First Two Weeks . Patient was given the opportunity and encouraged to ask questions. Patient verbalized understanding of information shared and has been given the mother/baby guide for home reference.
--- NOTE | 2022-02-02 13:44 | WPDANESPN ---
Anes - Prog Note Post-Op Date/Time: 02/02/22 13:44 Cardiovascular status: normal Respiratory status: normal Airway patency: baseline Mental status: baseline Post-Op hydration status: normal Vital Signs: Last Vital Signs Temp 36.3 C L 02/02/22 07:30 Pulse 78 02/02/22 07:30 Resp 16 02/02/22 07:30 BP 105/63 02/02/22 07:30 Pulse Ox 100 02/02/22 07:30 O2 Del Method Room Air 02/01/22 16:05 Pain Score (VAS): 0 I/O: Intake & Output 02/01/22 02/02/22 02/02/22 23:59 07:59 15:59 Intake Total 240 240 Balance 240 240 Laboratory Tests 02/01/22 03:47 Post-procedural complaints: none Patient Feedback: Patient satisfied with anesthetic care.
[2022-02-02 14:39] LABS: Rapid Plasma Reagin Non-Reactive (NonReactive)
[2022-02-04 11:02] VITALS: BP 123/72; PULSE 86; RESP 20; TEMP 36.8; O2SAT 100
== END 2022-02-02 14:05 | disposition home or self-care (01) | DRG 768 ==
LOC: ANHOB2 01-31 22:31 → ANHLDR 02-01 10:14
PROVIDERS: Admitting Provider Obstetrics & Gynecology; PCP Advanced Practice Midwife; Visit Provider Obstetrics & Gynecology
PROC: 0DQR0ZZ Repair Anal Sphincter, Open Approach (ICD-10-PCS; principal; 2022-02-01 09:00)
DX: O41.03X0 Oligohydramnios, third trimester, not applicable or unspecified (principal); Z37.0 Single live birth; T81.590A Other complications of foreign body accidentally left in body following surgical operation, initial encounter; Z20.822 Contact with and (suspected) exposure to COVID-19; O76 Abnormality in fetal heart rate and rhythm complicating labor and delivery; O70.1 Second degree perineal laceration during delivery; Z3A.40 40 weeks gestation of pregnancy; M79.5 Residual foreign body in soft tissue; Y65.8 Other specified misadventures during surgical and medical care
CPT/HCPCS: 36415; 72170; 72192; 85025; 86592; 86850; 86900; 86901; 88307; A9270; C9803; J2250; J2590; J2704; J2795; J3010; J7120; U0003; U0005

== ENCOUNTER 2023-08-27 10:18 | Emergency (ER) | payer OTHER, BC, SELFPAY ==
[2023-08-27 10:30] VITALS: BP 113/68; PULSE 100; RESP 16; TEMP 36.6; O2SAT 98
--- NOTE | 2023-08-27 10:37 | ED.URI ---
HPI - URI/Sore Throat General Chief Complaint: Upper Respiratory Infection Stated Complaint: SINUS CONGESTION Time Seen by Provider: 08/27/23 10:22 Source: patient and RN notes reviewed Mode of arrival: ambulatory Limitations: no limitations History of Present Illness HPI Narrative: 28 year old female presents to [facility] with a complaint of bilateral eye pressure, sore jaw and mouth, sore nasal congestion for 4 days. Pt is 33 weeks gestation with 2nd . Patient has treated at home with Tylenol for the past 4 days with very limited relief. Patient denies allergies, prescription medications, shortness of breath, social history. Patient was seen by OBGYN last week. Patient denies any other pertinent past medical history. Patient able to tolerate fluids by mouth. A & O x3 upon arrival with no signs of distress. Patient is tearful during examination and states she is exhausted from lack of rest. Related Data Home Medications Medication Instructions Recorded Confirmed ferrous sulfate 142 mg (45 mg 142 mg PO BID 12/26/21 01/30/22 iron) tablet,extended release prenat.vits,all,[id number] 1 tablet PO DAILY 12/26/21 01/30/22 Allergies Allergy/AdvReac Type Severity Reaction Status Date / Time No Known Drug Allergies Allergy Unknown Unknown Verified 12/26/21 14:48 Review of Systems Review of Systems: All systems reviewed & are unremarkable except as noted in HPI and below Constitutional: Constitutional: Reports difficulty sleeping and Reports lethargy Eyes: Eyes: Reports other (Pt endorses bilateral eye pressure/discomfort) ENT: Reports nasal congestion, Reports sore throat and Reports other (jaw pain/stiffness) Cardiovascular: Cardiovascular: Reports no additional cardiovascular complaints, Denies chest pain and Denies dyspnea Respiratory: Respiratory: Reports no additional respiratory complaints, Denies cough and Denies dyspnea Musculoskeletal: Musculoskeletal: Reports no additional musculoskeletal complaints Neurologic: Reports system reviewed and no additional complaints, except as documented Psychiatric: Psychiatric: Reports no additional psychiatric complaints [facility] Past Medical History Medical History (Updated 08/27/23 @ 10:53 by Erna Olmstead APRN) Foreign body (FB) in soft tissue Iron deficiency anemia, unspecified Family History Family History (Updated 12/26/21 @ 14:51 by Marcelina Salazar RN) Mother Diabetes mellitus Grandparent Cancer Grandparent Cancer Grandparent Cancer Social History Social History Smoking status: Never smoker Substance use: never Spiritual care concerns: No Comments At the time of my signature, I reviewed and agree with the nursing past medical, surgical, social, and family history. There is no relevant family history pertinent to the patient complaint. Exam Const: General: cooperative, healthy appearing, comfortable, no acute distress, alert, tired appearing and well nourished Nutritional Appearance: well nourished Orientation/consciousness: patient oriented x3 Limitations: no limitations HENMT: Head: normal to inspection Ears: external ears normal and TM abnormal dull, with fluid behind the TM bilateral, with loss of landmarks on the right and not mobile Face/Nose/Sinus: Normal external nose present, Normal nares present, normal facial exam, No erythema and No edema Face and sinus: normal facial exam, no erythema and no edema Mouth: Yes Normal oral and palatal mucosa present Teeth and gingiva: dentition normal and gingiva normal Throat: uvula midline and posterior oropharynx abnormal erythema Eyes: General: appearance normal, both eyes and all related structures Neck: Neck: normal visual inspection, full ROM and no meningeal signs Lymphatic: no lymphadenopathy noted and no lymphedema noted Chest: Chest palpation & inspection: normal inspection of the chest Resp: Effort & Inspection: normal respiratory effort and abl
== END 2023-08-27 10:59 | disposition home or self-care (01) ==
PROVIDERS: Emergency Provider Nurse Practitioner Family
DX: O99.891 Other specified diseases and conditions complicating pregnancy (principal); H66.91 Otitis media, unspecified, right ear; Z3A.33 33 weeks gestation of pregnancy; Z20.822 Contact with and (suspected) exposure to COVID-19; O99.013 Anemia complicating pregnancy, third trimester; Z87.891 Personal history of nicotine dependence
CPT/HCPCS: 87426; 87804; 99213; G0463

== ENCOUNTER 2023-10-11 09:53 | Inpatient (IN) | payer OTHER, BC, SELFPAY ==
[2023-10-11] VITALS (82 sets, daily range): BP systolic 65–135; BP diastolic 31–92; PULSE 29–142; RESP 16; TEMP 36.6–37.4; O2SAT 73–100; BMI 30.4
[2023-10-11 10:27] LABS: Basophils Percent Auto 0.3 % (0.2-1.2); Eosinophils Percent Auto 0.4 % (0-4.4); Hemoglobin 11.7 g/dL (12.0-15.0); Immature Granulocyte Absolute 0.07 K/mm3 (0.00-0.031); Immature Granulocyte Percent A 0.7 % (0-0.5); Lymphocytes Absolute Auto 2.61 K/mm3 (0.9-3.2); Lymphocytes Percent Auto 24.6 % (18.3-44.2); Mean Corpuscular HGB Conc 32.5 g/dl (32-36); Mean Corpuscular Hemoglobin 30.7 pg (26-34); Mean Corpuscular Volume 94.5 fl (80-100); Mean Platelet Volume 10.4 fl (7.4-10.4); Monocytes Absolute Auto 0.7 K/mm3 (0.1-0.6); Monocytes Percent Auto 6.7 % (2.6-8.5); Neutrophils Absolute Auto 7.1 K/mm3 (1.3-6.7); Neutrophils Percent Auto 67.3 % (45.5-73.1); Platelet Count Result 194 k/mm3 (150-375); Red Blood Count 3.81 M/mm3 (4.2-5.4); Red Cell Distribution Width 14.2 % (11.5-14.5); White Blood Count 10.6 K/mm3 (4.5-10.0)
--- NOTE | 2023-10-11 10:27 | PC.NURSE ---
Patient refusing cervical exam. RN notified patient that her induction orders are low dose pitocin and a cervical exam is performed before an induction is started. Patient states she wants to wait for Bryson Andersen CNM to come check her cervix. Called Bryson Andersen CNM at 1025 and notified her of patient's request. MARIPOSA gave verbal orders to start pitocin titration and she will be by soon to evaluate the patient.
[2023-10-11] MEDS: LACTATED RINGERS 1,000 ML 125 ML IV CONT ×2 (10:37→14:34)
[2023-10-11] MEDS: OXYTOCIN 30 UNITS/NS 500 ML 30 UNITS/500 ML BAG IV CONT (10:38)
--- NOTE | 2023-10-11 10:44 | LDADM ---
This patient, Nuris Trevizo, was admitted to Labor/Delivery/Recovery 106 on 10/11/23 at 09:53. Plans for labor, pain management and were discussed with patient. Patient/family oriented to hospital policies and general routines including ID bracelet, bed and alarms, visiting hours, pain management, procedures, bathroom and other care routines, personal items, smoking policy, room service/diet and guest tray routines, security routines, and visiting hours. Patient/Family are encouraged to report perceived risks to care and to ask questions if they do not understand what they are told or what they should do. See OBIX for further documentation.
--- NOTE | 2023-10-11 11:22 | WPDOBADMIT ---
Obstetrics - Admit Note Admission Note: record reviewed. No pertinent additions to the history and/or any subsequent changes in the physical findings that are not consistent with the expected course of the were found. Additions to the history and/or subsequent changes in the physical findings follow. Hx LGA, IOL for suspected LGA, SVE 280/-2 AROM clear fluid, anticipate vaginal delivery
--- NOTE | 2023-10-11 14:40 | WPDANESEPP ---
Anes - Eval Pre Procedure Procedure: Labor Epidural Date/Time: 10/11/23 14:40 Surgeon: Dr. Singh Pre Op Diagnosis: Induction of Labor Patient Data Age: 28 Gender: F Height: 1.68 m Weight: 85.5 kg Last Vital Signs Temp 36.6 C 10/11/23 13:02 Pulse 75 10/11/23 14:30 BP 113/67 10/11/23 14:30 O2 Del Method Room Air 10/11/23 10:40 Allergies Allergy/AdvReac Type Severity Reaction Status Date / Time No Known Drug Allergies Allergy Unknown Unknown Verified 10/11/23 10:49 Home Medications Medication Instructions Recorded Confirmed Type ferrous sulfate 142 mg (45 mg 142 mg PO BID 12/26/21 09/17/23 History iron) tablet,extended release prenat.vits,all,[id number]-[id number] 1 tablet PO DAILY 12/26/21 09/17/23 History Laboratory Tests 10/11/23 10:15 WBC 10.6 H K/mm3 (4.5-10.0) RBC 3.81 L M/mm3 (4.2-5.4) Hgb 11.7 L g/dL (12.0-15.0) Hct 36.0 L % (37.0-47.0) MCV 94.5 fl (80-100) MCH 30.7 pg (26-34) MCHC 32.5 g/dl (32-36) RDW 14.2 % (11.5-14.5) Plt Count 194 k/mm3 (150-375) MPV 10.4 fl (7.4-10.4) Immature Gran % (Auto) 0.7 H % (0-0.5) Neut % (Auto) 67.3 % (45.5-73.1) Lymph % (Auto) 24.6 % (18.3-44.2) [place] % (Auto) 6.7 % (2.6-8.5) Eos % (Auto) 0.4 % (0-4.4) Baso % (Auto) 0.3 % (0.2-1.2) Lymph # (Auto) 2.61 K/mm3 (0.9-3.2) [place] # (Auto) 0.7 H K/mm3 (0.1-0.6) Eos # (Auto) 0.0 K/mm3 (0-0.3) Baso # (Auto) 0.0 K/mm3 (0.0-0.1) Abs Immat Gran (auto) 0.07 H K/mm3 (0.00-0.031) Absolute Neuts (auto) 7.1 H K/mm3 (1.3-6.7) Absolute Nucleated RBC 0.000 K/mm3 (0.0-0.012) Nucleated RBC % 0.0 % (0.0-0.2) RPR Pending Blood Type A Positive Antibody Screen Negative Patient hx anesthesia problems: none Family hx anesthesia problems: none Results Review: All pre-operative results and documents have been reviewed as part of the pre-operative evaluation. [facility], [facility] Past Medical History Medical History Foreign body (FB) in soft tissue Iron deficiency anemia, unspecified Family History Family History Mother Diabetes mellitus Grandparent Cancer Grandparent Cancer Grandparent Cancer Social History Social History Smoking status: Never smoker Substance use: never Do You Feel Safe in your Home?: No Lack of Transportation: No Lack of Food: Never True Current Housing: I Have Housing Concerned About Future Housing: No Difficulty Paying Gas/Electric Bills: No Difficulty Paying for Meds: No Currently Unemployed: No Education: Bachelor's Degree Difficulty w/ Childcare or Family Care: No Spiritual care concerns: No Exam Day of Procedure 10/11/23 14:40
--- NOTE | 2023-10-11 17:03 | PM.OBPRVD ---
OB - Vaginal Delivery Note Procedure Delivery date: 10/11/23 Events: Other (LGA) Induction method: AROM and Per Pitocin Protocol Delivery monitor: External FHT and External Uterine Route of delivery: Episiotomy description: None Laceration Description: Superficial (x1 stitch) Delivery repair: vicryl Specimen: No Quantitative Blood Loss (ml): 100 Anesthesia type: Epidural Disposition: Floor Complications: No immediate complications [place] Baby Date of : 10/11/23 Time of : 16:50 Weeks of gestation at delivery: 39 Infant gender: Female Weight (pounds): 9 Weight (ounces): 10 presentation: vertex position: Right Occiput Anterior Placenta delivery description: Spontaneous Cord Vessel Description: 3 Vessels score one minute: 8 score five minutes: 9 Narrative: mother and baby ski to skin in stable condition
[2023-10-11] MEDS: OXYTOCIN 30 UNITS/NS 500 ML 30 UNITS/500 ML BAG 125 UNITS IV CONT (17:19)
[2023-10-11] MEDS: ACETAMINOPHEN 325 MG TABLET 650 MG PO (19:08)
[2023-10-12 00:13] VITALS: BP 110/71; PULSE 84; RESP 16; TEMP 36; O2SAT 98
[2023-10-12 04:52] LABS: Hemoglobin 11.4 g/dL (12.0-15.0)
--- NOTE | 2023-10-12 06:50 | P.PNOB_ITS ---
OB - PN: Subj Subjective Date/time seen: 10/12/23 06:50 Interval history: pp day 1 doing well no complaints OB - PN: Obj Data Labs 10/12/23 04:09 Labs: Laboratory Results - last 24 hr 10/11/23 10/12/23 10:15 04:09 WBC 10.6 H RBC 3.81 L Hgb 11.7 L 11.4 L Hct 36.0 L 37.0 MCV 94.5 MCH 30.7 MCHC 32.5 RDW 14.2 Plt Count 194 MPV 10.4 Immature Gran % (Auto) 0.7 H Neut % (Auto) 67.3 Lymph % (Auto) 24.6 [place] % (Auto) 6.7 Eos % (Auto) 0.4 Baso % (Auto) 0.3 Lymph # (Auto) 2.61 [place] # (Auto) 0.7 H Eos # (Auto) 0.0 Baso # (Auto) 0.0 Abs Immat Gran (auto) 0.07 H Absolute Neuts (auto) 7.1 H Absolute Nucleated RBC 0.000 Nucleated RBC % 0.0 Blood Type A Positive Antibody Screen Negative OB - PN A/P Plan day: 1 Plan: routine care Time Spent With Patient Time: Total time spent is greater than 50% in coordination of care (as documented) at patient's floor/unit and/or counseling patient: Review of Systems Review of Systems: All systems reviewed & are unremarkable except as noted in HPI and below Exam Const: General: cooperative, healthy appearing and comfortable Chest: Chest palpation & inspection: normal inspection of the chest Resp: Effort & Inspection: normal respiratory effort GI: Other: soft Back/Spine/Pelvis: Back: no CVA tenderness Skin: General skin exam: normal color
[2023-10-12 07:25] VITALS: BP 115/61; PULSE 70; RESP 16; TEMP 36.9; O2SAT 100
[2023-10-12] MEDS: MULTIVIT/MIN/PREN/FOL AC/IRON TABLET 1 TAB PO (07:41)
[2023-10-12] MEDS: DOCUSATE SODIUM 100 MG CAPSULE PO ×2 (07:41→16:42)
[2023-10-12] MEDS: ACETAMINOPHEN 325 MG TABLET 650 MG PO ×2 (07:41→22:00)
--- NOTE | 2023-10-12 11:39 | PC.NURSE ---
[id number] Consulted with patient after Primary RN reported mother has pain with . Infant is less than 24 hours old and is either fussy or sleeping. The grandma in the room is bouncing infant as she cries. Discussed with mother her successes, concerns and any questions she has. We reviewed working with the , supporting breast, protecting her nipples with an optimal deep latch, hand expression, good positioning, and good hand washing. Encouraged understanding the benefits of skin to skin, responding to feeding cues, frequencies of feeding 8-12 times in 24 hours (approximately 2-3 hours), duration of feedings, milk production, intake/output feeding sheet and signs of adequate intake encouraging swallowing at the breast. Infant demonstrates feeding cues rarely and doesn't open to latch to the breast. Mother hand expressed 1/2 - 3/4 tsp of EBM and it was spoon fed to the . Reviewed positioning and alignment, baby-led vs mother-led latching, supporting breast, off-centered (asymmetrical latch) and leading with the chin with big, open, wide gape. At times infant demonstrates instincts crawling to the breast, then cries and doesn't latch. Nipple care reviewed with optimal latch, good positioning and using clean hands when touching her breast. Resources used to facilitate learning were used from the visual handouts/ tool/mom and baby guide. Mother voiced understanding of the education shared, to call for assistance if the infant does not latch or if there is discomfort with . Reported to the Primary RN.
--- NOTE | 2023-10-12 12:18 | WPDANLDPN2 ---
Anes-Prog Note L&D Date/Time: 10/12/23 12:18 Comfortable throughout: labor and delivery Neuraxial method: epidural Epidural/Spinal procedure site: clean & non-tender Neuro status: Neuro function grossly intact. Cardiovascular status: normal Respiratory status: normal Airway patency: baseline Mental status: baseline Post-Op hydration status: normal Vital Signs: Last Vital Signs Temp 36.9 C 10/12/23 07:25 Pulse 70 10/12/23 07:25 Resp 16 10/12/23 07:25 BP 115/61 10/12/23 07:25 Pulse Ox 100 10/12/23 07:25 O2 Del Method Room Air 10/12/23 07:30 Pain score (VAS): 2/10 I/O: Intake & Output 10/11/23 10/12/23 10/12/23 23:59 07:59 15:59 Output Total 100 Balance -100 Post-procedural complaints: none Patient feedback: Patient satisfied with anesthetic care.
[2023-10-12 12:36] LABS: Rapid Plasma Reagin Non-Reactive (NonReactive)
--- NOTE | 2023-10-12 15:04 | PC.NURSE ---
[id number] Mother verbalizes she is able to independently latch with appropriate positioning and alignment. She states there's initial pain, then it subsides to nipple discomfort rated 4 (0-10) and is responsively . is currently meeting outcomes for weight, output, jaundice, blood sugar and feeding frequencies of 8-12 times in 24 hours. is fussy when not being held, made no effort to breastfeed at this time so, infant was swaddled to allow mother a nap. Mother is encouraged to call for assistance if her doesn?t latch, pain with latching, questions or concerns. Mother voiced understanding of information shared. Reported to the Primary RN.
[2023-10-12 16:05] VITALS: BP 118/66; PULSE 63; RESP 16; TEMP 36.6; O2SAT 100
[2023-10-12 21:50] VITALS: BP 109/78; PULSE 52; RESP 18; TEMP 36.4; O2SAT 100
--- NOTE | 2023-10-13 07:31 | PM.OBPNVD ---
OB - PN: Subj Subjective Date/time seen: 10/13/23 07:31 Interval history: pp day 2 doing well no complaints OB - PN: Obj Data Labs 10/12/23 04:09 Labs: Laboratory Results - last 24 hr 10/11/23 10:15 RPR Non-reactive OB - PN A/P Plan day: 2 Plan: routine care and discharge home Time Spent With Patient Time: Total time spent is greater than 50% in coordination of care (as documented) at patient's floor/unit and/or counseling patient: Review of Systems Review of Systems: All systems reviewed & are unremarkable except as noted in HPI and below Exam Const: General: cooperative and healthy appearing Resp: Effort & Inspection: normal respiratory effort GI: Inspection: normal to inspection Skin: General skin exam: normal color Neuro: General: patient oriented x3 Extrem: Right lower extremity: normal to inspection Left lower extremity: normal to inspection
--- NOTE | 2023-10-13 07:33 | PM.OBDSVD ---
DS: Admitting Diagnosis Discharge Date 10/13/23 Admitting Diagnosis IOL DS: Discharge Diagnosis Discharge Diagnosis (1) Vaginal delivery: Code(s): O80 - Encounter for full-term uncomplicated delivery Status: Acute OB - DS: Summary OB Procedures : None OB Procedures Intrapartum: Spontaneous Vag Delivery OB Procedures: : None Peripartum Data Laceration Description: Superficial (x1 stitch) Episiotomy description: None Time Spent with Patient Time attestation: Total time spent providing and/or coordinating discharge services: DS: Data Data Completed and Pending Labs on day of discharge: Labs from last 24 hours 10/11/23 10:15 RPR Non-reactive Discharge Plan Discharge Attending physician on discharge: Clarissa Singh Discharging Clinician: Tamera Andersen Patient Disposition: Home, Self-Care Activity: pelvic rest Diet: regular Patient Instructions: Antibiotic Form Stand Alone Forms: General Discharge Information Follow-up/Referrals: Tamera Andersen, CNM [Primary Care Provider] - 4 Weeks Discharge Medications: New ibuprofen 600 mg Tablet 600 mg PO Q6H PRN (Reason: Cramping) Qty: 30 0RF Continued prenat.vits,all,[id number] Tablet 1 tablet PO DAILY ferrous sulfate 142 mg (45 mg iron) Tablet Extended Release 142 mg PO BID Date of admission: 10/11/23 09:53 Primary Care Provider: Tamera Andersen Admitting Provider: Clarissa Singh Attending physician on admission: Clarissa Singh Condition: Stable
[2023-10-13 08:07] VITALS: BP 110/70; PULSE 68; RESP 14; TEMP 36.4; O2SAT 100
[2023-10-13] MEDS: DOCUSATE SODIUM 100 MG CAPSULE PO (09:22)
[2023-10-13] MEDS: MULTIVIT/MIN/PREN/FOL AC/IRON TABLET 1 TAB PO (09:23)
--- NOTE | 2023-10-13 09:42 | PC.NURSE ---
On 10/13/23, the student, Meryl Rosario, provided care and completed [facility] documentation on this patient. I have reviewed the student's documentation and agree with the findings.
--- NOTE | 2023-10-13 13:29 | PC.NURSE ---
[id number] Introductions were made, then consulted with patient to assess needs related to . Discussed with mother her?plans to feed?her infant and the?experience so far reviewing early feeding cues. Mother encouraged to eat her breakfast, then place infant [id number] watching for feeding cues to respond to. Mothers nipples are intact and there's no visible signs of injury. Mother shared that the nipples appear sightly pinched after the . Resources provided for inpatient and outpatient services with the feeding sheet, mom/baby guide and name written on the communication board. Mother voiced understanding of information and will call if there is a request for assistance. [id number] is skin to skin and crying. Infant had a stool diaper and gas expelled. Diaper changed, then demonstrated soothing technique with belly holding position with swaying, then after calmed down was placed [id number] on mother to organize and rest a bit. Mother instructed to call when feeding cues are visualized, pain with latching, or if her infant doesn't latch. [id number] Infant is encouraged to latch deeply to mothers right breast using the football position. Reviewed good pillow support, sandwich hold and assertively bringing infant to the breast with an asymmetrical latch with the chin buried deep. has a nice rounded cheek line, big open and swallowing is visualized frequently with a suck/swallow ratio of 3:1. has a tight tongue and at times lifts tongue before latching. Encouraged mother to watch the tongue to latch with the tongue down, starting with infant well supported at the breast, aim the nipple to the open soft palate at the back of the tongue, then support the optimal latch so she doesn't slowly let pull on the nipple. The nipple is slightly flattened after the . Mother is encouraged to rotate positioning from football to cross cradle with a big, open, wide gape, tongue down to prevent injury. After infant self detaches from the right breast, infant is [id number] demonstrating feeding cues, then is brought to the left breast using the cross cradle positioning. Mother shared that there's initial pain, then the discomfort is better with the deeper latch. demonstrated swallowing on both breast and mother demonstrated how to detach her when the latch became uncomfortable. Reviewed gentle parenting with assertive latching to protect her nipples. Mother voiced understanding of the information and resources reviewed for outpatient services.
[2023-10-14 11:18] VITALS: BP 121/73; PULSE 60; RESP 18; TEMP 36.6; O2SAT 100
== END 2023-10-13 12:55 | disposition home or self-care (01) | DRG 807 ==
LOC: ANHLDR 09:58 → ANHOB2 20:28
PROVIDERS: Admitting Provider Obstetrics & Gynecology; PCP Advanced Practice Midwife; Visit Provider Obstetrics & Gynecology
DX: O36.63X0 Maternal care for excessive fetal growth, third trimester, not applicable or unspecified (principal); Z37.0 Single live birth; Z3A.39 39 weeks gestation of pregnancy; O62.3 Precipitate labor; O70.0 First degree perineal laceration during delivery
CPT/HCPCS: 36415; 85014; 85018; 85025; 86592; 86850; 86900; 86901; A9270; J2590; J2795; J7120